=== PATIENT | male | born 1990 ===

== ENCOUNTER 2017-02-14 13:16 | Emergency (ER) | payer OTHER ==
[2017-02-14 13:27] VITALS: RESP 20
[2017-02-14 14:16] LABS: EOS % 0.7 % (0.0-4.0); HEMOGLOBIN 15.8 g/dL (12.0-18.0); LYMPH # 1.4 K/uL (1.0-4.3); LYMPH % 34.2 % (20.0-40.0); MEAN CORPUSCULAR HEMOGLOBIN 29.2 pg (27.0-31.0); MEAN CORPUSCULAR HGB CONC 33.9 g/dL (33.0-37.0); MONO # 0.3 K/uL (0.0-0.8); NEUT # 2.2 K/uL (1.8-7.0); NEUT % 56.1 % (50.0-75.0); NRBC % 0.2 % (0.0-2.0); RBC 5.41 Mil/uL (4.40-5.90); RED CELL DISTRIBUTION WIDTH 13.5 % (11.5-14.5)
[2017-02-14 14:19] LABS: URINE BILIRUBIN NEGATIVE (NEGATIVE); URINE BLOOD NEGATIVE (NEGATIVE); URINE CLARITY Clear (Clear); URINE COLOR Yellow (YELLOW); URINE GLUCOSE (UA) NORMAL (Normal); URINE LEUKOCYTE ESTERASE NEG Leu/uL (Negative); URINE NITRATE NEGATIVE (NEGATIVE); URINE PROTEIN NEGATIVE (NEGATIVE); URINE UROBILINOGEN NORMAL mg/dL (0.2-1.0)
--- NOTE | 2017-02-14 14:23 | RAD ---
HISTORY: SOB COMPARISON: None available. TECHNIQUE: Chest PA and lateral FINDINGS: LUNGS: No focal consolidation. Please note that chest x-ray has limited sensitivity for the detection of pulmonary masses. PLEURA: No significant pleural effusion identified. No definite pneumothorax . CARDIOVASCULAR: The cardiomediastinal silhouette appears within normal limits of size. OSSEOUS STRUCTURES: No acute osseous abnormality identified. VISUALIZED UPPER ABDOMEN: Unremarkable. OTHER FINDINGS: None. IMPRESSION: No focal consolidation, significant pleural effusion, or definite pneumothorax identified.
[2017-02-14 14:26] LABS: ALBUMIN 4.6 g/dL (3.5-5.0)
[2017-02-14 14:28] LABS: GFR AFRICAN-AMERICAN > 60; GFR NON-AFRICAN AMERICAN > 60
--- NOTE | 2017-02-14 14:28 | C.PDOC ---
History Of Present Illness 26 yo male c/o "bump" to the right side of neck for 6 months. Notes that "sometimes" he has a sore throat and "sometimes" has pain to the "bump". Also notes he feels his "heart racing" sometimes. Currently has no chest pain, no sob , no fever, no headache. denies anxiety. Notes that when he was a child he would get ultrasounds of his thyroid- does not know if something was wrong with it but did not take any medication for it. Notes he does not have a PMD. Time Seen by Provider: 02/14/17 13:29 Chief Complaint (Nursing): ENT Problem History Per: Patient History/Exam Limitations: no limitations Onset/Duration Of Symptoms: Other (6 months) Past Medical History Reviewed: Historical Data, Nursing Documentation, Vital Signs Vital Signs: Last Vital Signs Temp 99.3 F 02/14/17 15:44 Pulse 78 02/14/17 15:44 Resp 20 02/14/17 15:44 BP 120/74 02/14/17 15:44 Pulse Ox 99 02/14/17 15:44 Family History: States: Unknown Family Hx - Social History Hx Alcohol Use: Yes Hx Substance Use: No - Immunization History Hx Tetanus Toxoid Vaccination: No Hx Influenza Vaccination: No Hx Pneumococcal Vaccination: No Review Of Systems Except As Marked, All Systems Reviewed And Found Negative. Constitutional: Negative for: Fever, Chills ENT: Positive for: Throat Pain. Negative for: Nose Discharge, Nose Congestion, Throat Swelling Cardiovascular: Positive for: Other ("heart racing"). Negative for: Chest Pain Respiratory: Negative for: Cough, Shortness of Breath Skin: Positive for: Other (painful bump to right side of neck) Neurological: Negative for: Headache, Dizziness Physical Exam - Physical Exam Appears: Well, Non-toxic, No Acute Distress, Other (smiling, polite, speaking in full sentences. ) Skin: Normal Color, Warm, Dry Head: Atraumatic, Normacephalic Eye(s): bilateral: Normal Inspection, PERRL, EOMI Ear(s): Bilateral: Normal Nose: Normal Oral Mucosa: Moist Throat: Normal, No Erythema, No Exudate, No Drooling Neck: Normal, Normal ROM, Supple Lymphatic: Adenopathy (Left cerivcal lymphadenopathy) Chest: Symmetrical Cardiovascular: Rhythm Regular Respiratory: Normal Breath Sounds, No Accessory Muscle Use Gastrointestinal/Abdominal: Normal Exam, Soft, No Tenderness Back: Normal Inspection Extremity: Normal ROM Neurological/Psych: Oriented x3, Normal Speech ED Course And Treatment - Laboratory Results Result Diagrams: 02/14/17 14:10 02/14/17 14:10 ECG: Interpreted By Me, Viewed By Me ECG Rhythm: Sinus Rhythm ECG Interpretation: Normal Rate From EC (bpm) O2 Sat by Pulse Oximetry: 100 (RA) Pulse Ox Interpretation: Normal - Radiology CXR: Interpreted by Me, Viewed By Me CXR Interpretation: Yes: No Acute Disease Progress Note: Discussed with pt results and no acute findings. It was discussed with pt that though imemediate admission does not appear indicated since symptoms have been going on for 6+ mo, strict follow up is necassary. Discussed concern for lymphadenopathy and possible biopsy. Discussed cardiac and non cardiac causes for palpitations and stressed importance of follow up with the clinic. Case discussed with Dr Nogueira , sydnee coronado plan and discharge. Disposition - Disposition Referrals: [facility] at [facility] [Outside] Disposition: HOME/ ROUTINE Disposition Time: 15:28 Condition: STABLE Additional Instructions: Follow up with the clinic in 2-5 days for further evaluation. Return to the emergency department at any time if symptoms persist or worsen. You may call surgical specialty center at [facility] for any assistance [phone]. Instructions: Lymphadenopathy (ED) Forms: [facility] (Ecuadorean) - Clinical Impression Clinical Impression: Lymphadenopathy, Palpitations - PA / ARABIC TRANSLATOR / Resident Statement MD/DO has reviewed & agrees with the documentation as recorded. - Scribe Statement The provider has reviewed the documentation as recorded by the Alejandro Santos All medical record entries made by the Angelibpatrick were at my direction and personally dictated by me. I have reviewed the chart and agree that the record accurately reflects my personal performance of the history, physical exam, medical decision making, and the department course for this patient. I have also personally directed, reviewed, and agree with the discharge instructions and disposition.
[2017-02-14 14:29] LABS: ALB/GLOB RATIO 1.3 (1.0-2.1); AST/SGOT 30 U/L (17-59); BLOOD UREA NITROGEN 15 mg/dL (9-20)
[2017-02-14 14:30] LABS: ALT/SGPT 27 U/L (21-72); CALCIUM 9.8 mg/dl (8.6-10.4)
[2017-02-14 14:31] LABS: BARBITURATES, UR NEGATIVE (NEGATIVE); BENZODIAZEPINES, UR NEGATIVE (NEGATIVE)
[2017-02-14 14:36] LABS: OPIATES, UR NEGATIVE (NEGATIVE); PHENCYCLIDINE, UR NEGATIVE (NEGATIVE)
[2017-02-14 15:45] VITALS: BP 120/74; PULSE 78; TEMP 99.3
[2017-02-14 16:03] VITALS: O2SAT 100
--- NOTE | 2017-02-15 18:49 | CARD ---
APPROVED REPORT EKG Measurement Heart [id number] <Conclusion> Normal sinus rhythm Normal ECG
== END 2017-02-14 15:44 | disposition home or self-care (01) ==
LOC: C.ER 13:16
DX: R59.1 Generalized enlarged lymph nodes (principal); R00.2 Palpitations
CPT/HCPCS: 71020; 80053; 81001; 84443; 85025; 93005; 99283; G0480

== ENCOUNTER 2018-06-19 08:17 | Emergency (ER) | payer MEDICAID ==
[2018-06-19 08:23] VITALS: BMI 22.7
[2018-06-19] MEDS ORDERED: Sodium Chloride 0.9% 1,000 ML IV ONE (08:35)
[2018-06-19] MEDS ORDERED: Sodium Chloride 0.9% 1,000 ML ONE (08:59)
[2018-06-19 09:13] LABS: BASO % 0.2 % (0.0-2.0); HEMOGLOBIN 16.7 g/dL (12.0-18.0); LYMPH # 0.2 K/uL (1.0-4.3); LYMPH % 3.4 % (20.0-40.0); MEAN CORPUSCULAR HEMOGLOBIN 28.8 pg (27.0-31.0); MEAN CORPUSCULAR HGB CONC 33.5 g/dL (33.0-37.0); MEAN PLATELET VOLUME 9.1 fL (7.2-11.7); MONO # 0.4 K/uL (0.0-0.8); MONO % 6.4 % (0.0-10.0); PLATELET COUNT 212 K/uL (130-400); RBC 5.81 Mil/uL (4.40-5.90); RED CELL DISTRIBUTION WIDTH 13.8 % (11.5-14.5)
[2018-06-19 09:15] LABS: WHITE BLOOD COUNT 6.7 K/uL (4.8-10.8)
[2018-06-19 09:26] LABS: ALB/GLOB RATIO 1.4 (1.0-2.1); ALBUMIN 4.8 g/dL (3.5-5.0); ALT/SGPT 57 U/L (21-72); AST/SGOT 66 U/L (17-59); BLOOD UREA NITROGEN 21 mg/dL (9-20); CALCIUM 9.6 mg/dl (8.6-10.4); GFR NON-AFRICAN AMERICAN > 60; LIPASE 51 U/L (23-300)
--- NOTE | 2018-06-19 09:35 | C.PDOC ---
History Of Present Illness 27 y/o male presents to ED with c/o generalized body pain associated with x3 episodes of vomiting and diarrhea since yesterday. Patient denies recent travel, fever, chills, blood in stool, blood in vomit, chills, sob, chest pain or any other complaints at this time. Time Seen by Provider: 06/19/18 08:21 Chief Complaint (Nursing): Abdominal Pain History Per: Patient History/Exam Limitations: no limitations Onset/Duration Of Symptoms: Days Current Symptoms Are (Timing): Still Present Past Medical History Reviewed: Historical Data, Nursing Documentation, Vital Signs Vital Signs: Last Vital Signs Temp 98.7 F 06/19/18 08:22 Pulse 99 H 06/19/18 08:22 Resp 20 06/19/18 08:22 BP 148/89 06/19/18 08:22 Pulse Ox 98 06/19/18 08:22 - Medical History PMH: No Chronic Diseases Surgical History: No Surg Hx Family History: States: No Known Family Hx - Social History Hx Alcohol Use: No Hx Substance Use: Yes - Immunization History Hx Tetanus Toxoid Vaccination: No Hx Influenza Vaccination: Yes Hx Pneumococcal Vaccination: No Review Of Systems Constitutional: Negative for: Fever, Chills Cardiovascular: Negative for: Chest Pain Respiratory: Negative for: Cough, Shortness of Breath Gastrointestinal: Positive for: Vomiting, Abdominal Pain, Diarrhea. Negative for: Hematochezia, Hematemesis Genitourinary: Negative for: Dysuria Musculoskeletal: Negative for: Back Pain Physical Exam - Physical Exam Appears: Non-toxic, No Acute Distress Skin: Warm, Dry, No Rash Head: Atraumatic, Normacephalic Eye(s): bilateral: Normal Inspection Oral Mucosa: Moist Neck: Normal ROM, Supple Cardiovascular: Rhythm Regular Respiratory: Normal Breath Sounds, No Rales, No Rhonchi, No Wheezing Gastrointestinal/Abdominal: Soft, Tenderness (diffuse), No Guarding, No Rebound Back: No CVA Tenderness Neurological/Psych: Oriented x3, Normal Speech, Normal Cognition ED Course And Treatment - Laboratory Results Result Diagrams: 06/19/18 08:57 06/19/18 08:57 O2 Sat by Pulse Oximetry: 98 (RA) Pulse Ox Interpretation: Normal Disposition - Disposition Referrals: [facility] Elsa Cavazos, [Non-Staff] - Disposition: HOME/ ROUTINE Disposition Time: 09:50 Condition: IMPROVED Additional Instructions: TEDDY BLUE, thank you for letting us take care of you today. The emergency medical care you received today was directed at your acute symptoms. If you were prescribed any medication, please fill it and take as directed. It may take several days for your symptoms to resolve. Return to the Emergency Department if your symptoms worsen, do not improve, or if you have any other problems. Please contact your doctor or call one of the physicians/clinics you have been referred to that are listed on the Patient Visit Information form that is included in your discharge packet. Bring any paperwork you were given at discharge with you along with any medications you are taking to your follow up visit. Our treatment cannot replace ongoing medical care by a primary care provider outside of the emergency department. Thank you for allowing the [facility] team to be part of your care today. Drink plenty of fluids throughout the day. Follow up with your primary care doctor or the emergency room if you have any concerns. Prescriptions: Ondansetron ODT [Zofran ODT] 4 mg PO Q8 PRN #15 odt PRN Reason: Nausea/Vomiting Instructions: Viral Gastroenteritis, Adult (DC) Forms: [employer] (Mozambican), Work Excuse - Clinical Impression Clinical Impression: Viral gastroenteritis - Scribe Statement The provider has reviewed the documentation as recorded by the Angelibpatrick Santiago All medical record entries made by the Scribe were at my direction and personally dictated by me. I have reviewed the chart and agree that the record accurately reflects my personal performance of the history, physical exam, medical decision making, and the department course for this patient. I have also personally directed, reviewed, and agree with the discharge instructions and disposition.
[2018-06-19 10:04] VITALS: BP 131/80; PULSE 84; RESP 18; TEMP 98.5
[2018-06-19 10:18] LABS: LYMPHOCYTE 4 % (20-40); MONOCYTE 5 % (0-10); NEUTROPHIL 91 % (50-75); TOTAL CELLS COUNTED 100
[2018-06-19 10:31] LABS: PLATELET ESTIMATE NORMAL (NORMAL)
[2018-06-19 18:14] VITALS: O2SAT 98
== END 2018-06-19 10:04 | disposition home or self-care (01) ==
LOC: C.ER 08:17
DX: A08.4 Viral intestinal infection, unspecified (principal)
CPT/HCPCS: 80053; 83690; 85025; 87804; 96361; 96374; 96375; 99284; J2405; J7030